=== PATIENT | male | born 1960 | race Caucasian/White ===

== ENCOUNTER → 2024-11-22 | Outpatient (CLI) | payer MEDICARE, OTHER ==
[~2024-11-22] MED LIST: LIDOCAINE 1% MDV 20 ML VIAL SC ONE
[2024-11-22 12:50] VITALS: BP 134/73; O2SAT 95
== END ==
LOC: M IRPRO 09:39
PROVIDERS: ATTEND Surgery
DX: J90 Pleural effusion, not elsewhere classified (principal); C78.00 Secondary malignant neoplasm of unspecified lung

== ENCOUNTER → 2024-12-25 | Outpatient (CLI) | payer MEDICARE ==
[~2024-12-25] MED LIST changes: -LIDOCAINE 1% MDV 20 ML VIAL SC ONE; +OXYC-517 PO
== END ==
LOC: M ONCR 10:38
PROVIDERS: ATTEND General Practice
DX: C79.51 Secondary malignant neoplasm of bone (principal); C34.12 Malignant neoplasm of upper lobe, left bronchus or lung; Z87.891 Personal history of nicotine dependence; Z80.3 Family history of malignant neoplasm of breast; Z88.0 Allergy status to penicillin; Z88.1 Allergy status to other antibiotic agents

== ENCOUNTER → 2025-01-01 | Outpatient (CLI) | payer MEDICARE ==
[~2025-01-01] MED LIST changes: +ACET500P3 PO; +FERR325T81 PO; +MIRA3350 PO; +SENN8.6T28 PO
== END ==
LOC: M PLARAD 13:53
PROVIDERS: ATTEND General Practice
DX: C34.12 Malignant neoplasm of upper lobe, left bronchus or lung (principal)
CPT/HCPCS: 78815; A9552

== ENCOUNTER → 2025-01-02 | Outpatient (CLI) | payer MEDICARE ==
[~2025-01-02] VITALS: Ht 172.7 cm; Wt 83.0 kg
[2025-01-02 08:40] VITALS: BP 160/86; O2SAT 93
== END ==
LOC: M PAL 08:09
PROVIDERS: ATTEND Physician Assistant
DX: Z51.5 Encounter for palliative care (principal); C34.92 Malignant neoplasm of unspecified part of left bronchus or lung; R52 Pain, unspecified; K59.00 Constipation, unspecified; Z66 Do not resuscitate; Z79.891 Long term (current) use of opiate analgesic; Z88.0 Allergy status to penicillin; Z88.1 Allergy status to other antibiotic agents; Z92.3 Personal history of irradiation

== ENCOUNTER 2025-01-09 08:21 | Outpatient (RCR) | payer MEDICARE ==
[2025-01-16] MEDS ORDERED: ONDA-84 PO (14:38)
== END 2025-01-18 ==
LOC: M ONCR 08:21
PROVIDERS: ATTEND General Practice
DX: Z51.0 Encounter for antineoplastic radiation therapy (principal); C34.12 Malignant neoplasm of upper lobe, left bronchus or lung; C79.51 Secondary malignant neoplasm of bone

== ENCOUNTER → 2025-01-17 | Outpatient (CLI) | payer MEDICARE ==
[~2025-01-17] MED LIST changes: +ONDA-84 PO; +PROHANCE 279.3MG/ML 15ML VIAL As Ordered ONE
== END ==
LOC: M RAD 06:51
PROVIDERS: ATTEND General Practice
DX: Z53.9 Procedure and treatment not carried out, unspecified reason (principal)

== ENCOUNTER → 2025-01-23 | Outpatient (CLI) | payer MEDICARE ==
[~2025-01-23] VITALS: Ht 177.8 cm; Wt 79.7 kg
[~2025-01-23] MED LIST changes: -PROHANCE 279.3MG/ML 15ML VIAL As Ordered ONE
[2025-01-23 08:55] VITALS: BP 145/87; O2SAT 96
== END ==
LOC: M PAL 08:04
PROVIDERS: ATTEND Physician Assistant
DX: Z51.5 Encounter for palliative care (principal); Z66 Do not resuscitate; C34.91 Malignant neoplasm of unspecified part of right bronchus or lung; C78.89 Secondary malignant neoplasm of other digestive organs; C78.1 Secondary malignant neoplasm of mediastinum; Z79.891 Long term (current) use of opiate analgesic; Z88.1 Allergy status to other antibiotic agents; Z88.0 Allergy status to penicillin; Z79.899 Other long term (current) drug therapy

== ENCOUNTER → 2025-01-26 | Outpatient (CLI) | payer MEDICARE ==
[~2025-01-26] VITALS: Ht 172.7 cm; Wt 81.0 kg
[~2025-01-26] MED LIST changes: +LIDO30CR18 TOP
[2025-01-26 08:10] VITALS: TEMP 97.8
[2025-01-26] MEDS: NS (Normal Saline) 0.9% 1,000 ML IV SCH (08:45)
[2025-01-26] MEDS: VANCOMYCIN HCL 1,000 MG, VIAL MATE ADAPTER 1 EACH in NS 250 ML IV ONE (08:46)
[2025-01-26] MEDS: MIDAZOLAM INJ 2 MG/2 ML VIAL IV PRN (10:07)
[2025-01-26] MEDS: LIDOCAINE 1% MDV 20 ML VIAL SC SCH (10:17)
[2025-01-26 11:00] VITALS: BP 140/67; O2SAT 92
== END ==
LOC: M IRPRO 08:01
PROVIDERS: ATTEND Student in an Organized Health Care Education/Training Program
DX: C34.90 Malignant neoplasm of unspecified part of unspecified bronchus or lung (principal)
CPT/HCPCS: 36561; 76937; 99152; J1642; J2250; J3010; J3373

== ENCOUNTER → 2025-01-30 | Outpatient (CLI) | payer MEDICARE ==
[~2025-01-30] MED LIST changes: +ISOVUE-370 76% 100 ML VIAL As Ordered ONE
== END ==
LOC: M RAD 14:10
PROVIDERS: ATTEND General Practice
DX: C34.90 Malignant neoplasm of unspecified part of unspecified bronchus or lung (principal)

== ENCOUNTER → 2025-02-06 | Outpatient (CLI) | payer MEDICARE ==
[~2025-02-06] MED LIST changes: -ISOVUE-370 76% 100 ML VIAL As Ordered ONE
== END ==
LOC: M ONCR 10:21
PROVIDERS: ATTEND General Practice
DX: C79.31 Secondary malignant neoplasm of brain (principal); C34.12 Malignant neoplasm of upper lobe, left bronchus or lung; R22.2 Localized swelling, mass and lump, trunk; Z79.633 Long term (current) use of mitotic inhibitor; Z87.891 Personal history of nicotine dependence; Z88.0 Allergy status to penicillin; Z92.3 Personal history of irradiation

== ENCOUNTER 2025-02-11 07:41 | Outpatient (RCR) | payer MEDICARE | END 2025-02-17 | LOC: M ONCR 07:41 | PROVIDERS: ATTEND General Practice | DX: Z51.0 Encounter for antineoplastic radiation therapy (principal); C34.12 Malignant neoplasm of upper lobe, left bronchus or lung ==

== ENCOUNTER → 2025-02-11 | Outpatient (CLI) | payer MEDICARE ==
[~2025-02-11] VITALS: Ht 172.7 cm; Wt 76.7 kg
[2025-02-11 09:14] VITALS: BP 140/76; O2SAT 95
== END ==
LOC: M PAL 08:34
PROVIDERS: ATTEND Physician Assistant
DX: Z51.5 Encounter for palliative care (principal); Z66 Do not resuscitate; C34.82 Malignant neoplasm of overlapping sites of left bronchus and lung; C78.00 Secondary malignant neoplasm of unspecified lung; Z79.891 Long term (current) use of opiate analgesic; Z88.1 Allergy status to other antibiotic agents; Z88.0 Allergy status to penicillin; Z79.899 Other long term (current) drug therapy

== ENCOUNTER 2025-02-22 07:40 | Outpatient (RCR) | payer MEDICARE ==
[2025-03-13] MEDS ORDERED: VITACAP8 PO (08:28)
== END 2025-03-20 ==
LOC: M ONCR 07:40
PROVIDERS: ATTEND General Practice
DX: Z51.0 Encounter for antineoplastic radiation therapy (principal); C79.31 Secondary malignant neoplasm of brain

== ENCOUNTER → 2025-03-12 | Outpatient (CLI) | payer MEDICARE ==
[~2025-03-12] VITALS: Ht 172.7 cm; Wt 76.7 kg
[~2025-03-12] MED LIST changes: +VITACAP8 PO
[2025-03-12 09:20] VITALS: BP 148/90; O2SAT 98
== END ==
LOC: M PAL 08:39
PROVIDERS: ATTEND Physician Assistant
DX: Z51.5 Encounter for palliative care (principal); Z66 Do not resuscitate; C34.92 Malignant neoplasm of unspecified part of left bronchus or lung; C78.00 Secondary malignant neoplasm of unspecified lung; Z79.891 Long term (current) use of opiate analgesic; Z88.0 Allergy status to penicillin; Z88.1 Allergy status to other antibiotic agents; Z79.899 Other long term (current) drug therapy; Z79.52 Long term (current) use of systemic steroids